=== PATIENT | female | born 1970 | race Caucasian/White ===

== ENCOUNTER 2019-10-26 20:04 | Emergency (ER) | payer BC ==
[~2019-10-26] VITALS: Ht 165.1 cm; Wt 77.1 kg
[~2019-10-26 20:04] MED LIST: PREDNISONE 20 M20 M1 PO; VISTARIL 25 MG25 M1 PO
[2019-10-26 20:09] VITALS: BP 154/93
[2019-10-26] MEDS ORDERED: ADDERALL 30 MG30 MG PO (20:13)
[2019-10-26] MEDS ORDERED: GLYBURIDE 5 MG T5 M1 PO (20:13)
[2019-10-26] MEDS ORDERED: FORTAMET500 MG PO (20:13)
[2019-10-26] MEDS ORDERED: XANAX 0.25 MG0.25 MG PO (20:13)
[2019-10-26] MEDS ORDERED: LEXAPRO 10 MG T10 M1 PO (20:13)
== END 2019-10-26 20:53 | disposition home or self-care (01) ==
LOC: M.ERS 20:04
DX: S92.502A Displaced unspecified fracture of left lesser toe(s), initial encounter for closed fracture (principal); Z98.890 Other specified postprocedural states; Z90.49 Acquired absence of other specified parts of digestive tract; Z79.899 Other long term (current) drug therapy; X58.XXXA Exposure to other specified factors, initial encounter; Y93.89 Activity, other specified; Y92.89 Other specified places as the place of occurrence of the external cause; Y99.8 Other external cause status

== ENCOUNTER 2021-01-04 14:07 | Emergency (ER) | payer BC ==
[~2021-01-04] VITALS: Ht 165.1 cm; Wt 77.1 kg
[~2021-01-04 14:07] MED LIST changes: +ADDERALL 30 MG30 MG PO; +FORTAMET500 MG PO; +GLYBURIDE 5 MG T5 M1 PO; +LEXAPRO 10 MG T10 M1 PO; +XANAX 0.25 MG0.25 MG PO
[2021-01-04] MEDS ORDERED: CEPHALEXIN500 MG PO (14:29)
[2021-01-04 14:56] VITALS: BP 157/127
== END 2021-01-04 15:05 | disposition home or self-care (01) ==
LOC: M.ERS 14:07
DX: S10.86XA Insect bite of other specified part of neck, initial encounter (principal); Z98.890 Other specified postprocedural states; Z90.49 Acquired absence of other specified parts of digestive tract; Z79.899 Other long term (current) drug therapy; W57.XXXA Bitten or stung by nonvenomous insect and other nonvenomous arthropods, initial encounter; Y93.89 Activity, other specified; Y92.89 Other specified places as the place of occurrence of the external cause; Y99.8 Other external cause status

== ENCOUNTER 2021-02-01 23:06 | Emergency (ER) | payer BC ==
[~2021-02-01] VITALS: Ht 165.1 cm; Wt 77.1 kg
[~2021-02-01 23:06] MED LIST changes: +CEPHALEXIN500 MG PO
[2021-02-01 23:32] VITALS: BP 139/83
[2021-02-02 00:26] LABS: INFLUENZA A ANTIGEN Negative (Negative); INFLUENZA B ANTIGEN Negative (Negative)
[2021-02-02] MEDS ORDERED: MEDROLDOSEPACK PO (00:44)
== END 2021-02-02 01:47 | disposition home or self-care (01) ==
LOC: M.ERS 23:06
PROVIDERS: Personal Emergency Response Attendant
DX: U07.1 COVID-19 (principal); F41.9 Anxiety disorder, unspecified; Z98.890 Other specified postprocedural states; Z90.49 Acquired absence of other specified parts of digestive tract; Z79.899 Other long term (current) drug therapy